=== PATIENT | female | born 1995 | race Caucasian/White ===

== ENCOUNTER 2017-03-30 23:11 | Emergency (ER) | payer BC ==
[~2017-03-30] VITALS: Ht 157.5 cm; Wt 113.4 kg
[~2017-03-30 23:11] MED LIST changes: -CETI10TA84 PO; -GLC/500 PO; -MULT-1027 PO
[2017-03-30 23:14] VITALS: TEMP 36.7; Ht 157.5 cm; Wt 113.4 kg
[2017-03-30] MEDS ORDERED: MULT-1027 PO (23:41)
[2017-03-30] MEDS ORDERED: GLC/500 PO (23:41)
[2017-03-30] MEDS ORDERED: CETI10TA84 PO (23:41)
[2017-03-31 00:27] VITALS: BP 117/71; PULSE 73; O2SAT 98
--- NOTE | 2017-03-31 05:09 | EMERGENCY ROOM VISIT NOTE ---
ED Visit Note First contact with patient: 23:26 CHIEF COMPLAINT: Hand injury HISTORY OF PRESENT ILLNESS: This 21 yo patient presented to the emergency department after they injured the right hand after cracking her hand the other day. The patient rates the pain as throbbing and 4/10. The patient denies any numbness or tingling. The patient does not have injuries to the wrist. The patient has not had a previous fracture to this hand. REVIEW OF SYSTEMS: A 6 system review of systems was completed with positives and pertinent negatives in the HPI. ALLERGIES: None MEDICATIONS: Reviewed PMH:Medical Problems: (1) Asthma Status: Chronic (2) Asthma, Unspecified Status: Chronic (3) Diab Sarah Wo Compl, Type Ii Or Unspec Type, Not Uncntrld Status: Chronic (4) Dysuria Status: Resolved (5) GERD (gastroesophageal reflux disease) Status: Chronic (6) HTN (hypertension) Status: Chronic (7) Infected pierced navel Status: Resolved (8) Infected pierced navel Status: Resolved SOCIAL HISTORY: No drug use PHYSICAL EXAM: Vital Signs: Reviewed Nurse's notes, vital signs stable. GENERAL : Pleasant female, in no acute distress, but appears to be in pain, well- developed, well-nourished. MUSCULOSKELETAL: There is no deformity of the right hand. There is tenderness second metacarpal. There is no thenar or hypothenar eminence atrophy. Normal thumb opposition to all fingers. Associate Producer strength 5/5. There is no laceration. Capillary refill less than 2 seconds. No tenderness of the fingers or wrist. Full range of motion of the wrist. No snuff box tenderness. Radial pulse 2+. NEURO: Alert and oriented to person, place, and time. Normal sensation to light and sharp touch. EMERGENCY DEPARTMENT COURSE: I examined the patient. An x-ray of the right hand was reviewed by myself and my attending and shows no fracture. Patient is advised follow-up orthopedics in a few days if symptoms persist or here in the ER sooner for severe pain, numbness, tingling, worsening signs or symptoms or as needed The patient was discharged home in good condition. DIAGNOSIS: Right hand pain DISCHARGE INSTRUCTIONS: As below Problem List Medical Problems: (1) Asthma Status: Chronic (2) Asthma, Unspecified Status: Chronic (3) Diab Sarah Wo Compl, Type Ii Or Unspec Type, Not Uncntrld Status: Chronic (4) Dysuria Status: Resolved (5) GERD (gastroesophageal reflux disease) Status: Chronic (6) HTN (hypertension) Status: Chronic (7) Infected pierced navel Status: Resolved (8) Infected pierced navel Status: Resolved Current/Historical Medications Scheduled Cetirizine (Zyrtec), 10 MG PO DAILY Metformin Hcl (Glucophage), 500 MG PO TID Multiple Vitamin (Multi Vitamin), 1 TAB PO DAILY Allergies Coded Allergies: No Known Allergies (Unverified , NONE, 03/30/17) Vital Signs Date Time Temp Pulse Resp B/P (MAP) Pulse Ox O2 Delivery O2 Flow Rate FiO2 03/31/17 00:27 73 16 117/71 98 03/30/17 23:14 36.7 83 18 151/101 99 Room Air Departure Information Impression Primary Impression: Right hand pain Dispostion Home / Self-Care Condition GOOD Referrals Lavon Santiago, DO Forms HOME CARE DOCUMENTATION FORM, IMPORTANT VISIT INFORMATION Patient Instructions [facility] Additional Instructions Ibuprofen(Motrin, Advil) may be used for fever or pain. Use 600mg every six hours as needed. Take with food. Avoid using more than 2400mg in a 24 hour period. Do not use 2400mg per day for more than three consecutive days without physician direction. Prolonged inappropriate use can lead to stomach upset or ulcers. This medication can be taken if you need to drive, work, or perform activities which may be dangerous when taking narcotic pain medication. (AND/OR) Acetaminophen(Tylenol) may be used for fever or pain. Use 1000mg every six hours as needed. Avoid using more than 3000mg in a 24 hour period. This medication can be taken if you need to drive, work, or perform activities which may be dangerous when taking narcotic pain medication. Ice compresses for 20 minutes at a time four times daily for 2-3 days. Rest and elevate your injury. Continue current medications. Return to the ER immediately for any numbness, tingling, severe pain, extreme swelling in the extremity or as needed. Call Orthopedics tomorrow in 3-5 days if symptoms persist follow up for your injury.
--- NOTE | 2017-03-31 06:48 | DIAGNOSTIC IMAGING REPORT ---
RIGHT HAND MIN 3 VIEWS ROUTINE CLINICAL HISTORY: Right hand pain. COMPARISON: Right hand radiographs March 30, 2017. FINDINGS: Alignment of the right and is an anatomic. Carpal bones are intact. No acute fracture is identified. IMPRESSION: No acute fracture or dislocation of the right hand. Electronically signed by: Jose Benavides M.D. 03/31/2017 6:47 AM Dictated Date/Time: 03/31/2017 6:45 AM
== END 2017-03-31 00:27 | disposition home or self-care (01) ==
LOC: C.EDB 23:13 → C.EDC 03-31 00:27
DX: S69.91XA Unspecified injury of right wrist, hand and finger(s), initial encounter (principal); X58.XXXA Exposure to other specified factors, initial encounter; J45.909 Unspecified asthma, uncomplicated; E11.9 Type 2 diabetes mellitus without complications; K21.9 Gastro-esophageal reflux disease without esophagitis; I10 Essential (primary) hypertension; Z79.899 Other long term (current) drug therapy

== ENCOUNTER → 2017-03-30 | Outpatient (CLI) | payer BC ==
[~2017-03-30] MED LIST: CETI10TA84 PO; GLC/500 PO; MULT-1027 PO; PRENTAB26 PO; VALA500T39 PO
--- NOTE | 2017-03-30 14:47 | DIAGNOSTIC IMAGING REPORT ---
RIGHT HAND MIN 3 VIEWS ROUTINE CLINICAL HISTORY: 21 years-old Female presenting with JOINT PAIN IN FINGER OF RIGHT HAND Right. TECHNIQUE: Frontal, oblique, and lateral views of the right hand were obtained. COMPARISON: None. FINDINGS: No acute fracture or malalignment. Regional soft tissues normal. No radiopaque foreign body. IMPRESSION: No acute osseous injury of the right hand. Electronically signed by: Yon Winter M.D. 03/30/2017 2:46 PM Dictated Date/Time: 03/30/2017 2:45 PM
== END | disposition home or self-care (01) ==
LOC: C.RAD1850 14:30
PROVIDERS: ATTEND Physician Assistant
DX: M25.541 Pain in joints of right hand (principal)

== ENCOUNTER → 2017-12-06 | Outpatient (CLI) | payer BC ==
[~2017-12-06] MED LIST changes: +CETI10TA84 PO; +GLC/500 PO; +MULT-1027 PO; -PRENTAB26 PO; -VALA500T39 PO
[2017-12-06 17:30] LABS: ALT/SGPT 47 U/L (12-78); AST/SGOT 20 U/L (15-37); BLOOD UREA NITROGEN 9 mg/dl (7-18); CALCIUM 8.7 mg/dl (8.5-10.1); CARBON DIOXIDE 24 mmol/L (21-32); CREATININE 0.75 mg/dl (0.60-1.20); GLUCOSE 95 mg/dl (70-99); POTASSIUM 3.8 mmol/L (3.5-5.1); SODIUM 137 mmol/L (136-145)
[2017-12-06 17:40] LABS: ALKALINE PHOSPHATASE 70 U/L (45-117); TOTAL PROTEIN 7.4 gm/dl (6.4-8.2)
[2017-12-07 06:45] LABS: HEMOGLOBIN A1C 5.2 % (4.5-5.6)
== END | disposition home or self-care (01) ==
LOC: C.LABBFT 14:17
PROVIDERS: ATTEND Nurse Practitioner
DX: E88.81 Metabolic syndrome and other insulin resistance (principal); G43.909 Migraine, unspecified, not intractable, without status migrainosus

== ENCOUNTER → 2018-02-15 | Outpatient (CLI) | payer BC | END | disposition home or self-care (01) | LOC: C.PAPS 15:46 | PROVIDERS: ATTEND Obstetrics & Gynecology | DX: Z34.81 Encounter for supervision of other normal pregnancy, first trimester (principal) ==

== ENCOUNTER → 2018-02-15 | Outpatient (CLI) | payer BC | END | disposition home or self-care (01) | LOC: C.LABSPEC 15:50 | PROVIDERS: ATTEND Obstetrics & Gynecology | DX: Z34.81 Encounter for supervision of other normal pregnancy, first trimester (principal) ==

== ENCOUNTER 2020-07-04 05:41 | Observation (INO) ==
[2020-07-04] MEDS ORDERED: FAMOTIDINE 20MG/5ML IV PUSH IV ONE ×2 (08:31)
[2020-07-04] MEDS ORDERED: MoRPHine SULFATE 4 MG/ML 1 ML CARP\\VIAL ONE ×3 (09:05→16:14)
[2020-07-04] MEDS ORDERED: oxyCODONE/ACETAMINOPHEN 5mg/325mg TAB PO ONE ×2 (10:45)
[2020-07-04] MEDS ORDERED: MoRPHine SULFATE 4 MG/ML 1 ML CARP\\VIAL IV PRN (12:07)
[2020-07-04] MEDS ORDERED: ONDANSETRON INJ 2 MG/ML 2 ML VIAL IV PRN (12:07)
[2020-07-04] MEDS ORDERED: IOVERSOL 100ml IV ONE (17:50)
[2020-07-04 18:51] LABS: Alanine Aminotransferase 38 U/L (12-78); Albumin Globulin Ratio 0.9 (0.9-2); Albumin Level 3.7 gm/dl (3.4-5.0); Alkaline Phosphatase 82 U/L (45-117); Aspartate Aminotransferase 16 U/L (15-37); Bilirubin,Total 0.2 mg/dl (0.2-1); Blood Urea Nitrogen 13 mg/dl (7-18); Calcium 8.8 mg/dl (8.5-10.1); Carbon Dioxide 29 mmol/L (21-32); Chloride 107 mmol/L (98-107); Est GFR (African American) 132.7; Est GFR (Non-African American) 114.5; Globulin 3.9 gm/dl (2.5-4.0); Glucose 94 mg/dl (70-99); Lipase 927 U/L (73-393); Potassium 4.2 mmol/L (3.5-5.1); Sodium 139 mmol/L (136-145); Total Protein 7.6 gm/dl (6.4-8.2)
[2020-07-04 18:52] LABS: Chol HDL Ratio 4; Cholesterol 181 mg/dl (0-200); HDL Cholesterol 48 mg/dl; LDL Cholesterol Calculated 96 mg/dl; Triglycerides 186 mg/dl (0-150); VLDL Cholesterol 37 mg/dl
[2020-07-04 19:03] LABS: Appearance Urine Clear (Clear); Bilirubin Urine Negative (Negative); Blood Urine Negative (Negative); Color Urine Yellow; Glucose Urine UA Negative (Negative); Ketones Urine Negative (Negative); Leukocyte Esterase Urine Negative (Negative); Nitrite Urine Negative (Negative); Protein Urine Negative (Negative); Specific Gravity Urine 1.016 (1.000-1.030); Urobilinogen Urine Negative (Negative)
[2020-07-04] MEDS ORDERED: GLUCAGON FOR INJ 1 MG VIAL SQ PRN (19:30)
[2020-07-04] MEDS ORDERED: GLUCOSE 10 TABS/TUBE PO PRN (19:30)
[2020-07-04] MEDS ORDERED: CARBOHYDRATES FOR HYPOGLYCEMIA PO PRN (19:30)
[2020-07-04] MEDS ORDERED: DEXTROSE 50% 50 ML SYRINGE IV PRN (19:30)
[2020-07-04] MEDS ORDERED: GLUCOSE 40% GEL 15 GM TUBE PO PRN (19:30)
[2020-07-04 19:48] LABS: Hematocrit (blood only) 41.3 % (37-47); Hemoglobin 13.7 g/dL (12.0-16.0); Immature Granulocytes # (auto) 0.03 K/uL (0.00-0.02); Immature Granulocytes % (auto) 0.4 %; Lymphocytes # (auto) 2.96 K/uL (1.2-3.4); Lymphocytes % (auto) 37.3 %; Mean Corpuscular Hgb Conc 33.2 g/dL (32-36); Mean Corpuscular Volume 87.5 fL (80-100); Mean Platelet Volume 9.4 fL (7.4-10.4); Monocytes # (auto) 0.56 K/uL (0.11-0.59); Monocytes % (auto) 7.1 %; Neutrophils # (auto) 4.38 K/uL (1.4-6.5); Neutrophils % (auto) 55.2 %; Platelet Count 407 K/uL (130-400); RDW Coefficient of Variation 12.7 % (11.5-14.5); RDW Standard Deviation 41.1 fL (36.4-46.3); Red Blood Count 4.72 M/uL (4.2-5.4); White Blood Count 7.93 K/uL (4.8-10.8)
[2020-07-04 20:06] LABS: Pregnancy Test, Serum Negative (Negative)
[2020-07-04] MEDS: SODIUM CHLORIDE 0.9% 1000ML 1,000 ML IV SCH ×2 (20:20→20:38)
--- NOTE | 2020-07-04 20:27 | Ultrasound Report ---
BILIARY ULTRASOUND CLINICAL HISTORY: Right upper quadrant abdominal pain COMPARISON STUDY: No previous studies for comparison. FINDINGS: The pancreas appears normal as visualized however portions of the body and tail were nondelineated. No focal hepatic masses are visualized. The gallbladder appears sonographically normal. There is suspected mild increase in hepatic echogenicity, nonspecific finding most often seen in hepatic steatosis. The common bile duct measures 6 mm. IMPRESSION: 1. Increased hepatic echogenicity, nonspecific finding most often seen in hepatic steatosis. 2. Otherwise normal biliary ultrasound. ACT 112: Negative or not required by law. Electronically signed by: Rick Hernandez M.D. 07/04/2020 8:33 AM [facility]IM[facility]
--- NOTE | 2020-07-04 21:26 | CT Scan Report ---
CT abd pelvis IV con only CLINICAL HISTORY: Lower abdominal pain COMPARISON STUDY: None. TECHNIQUE: The patient was scanned in a dynamic helical fashion during intravenous administration of 94 cc of Optiray 320 A dose lowering technique was utilized adhering to the principles of ALARA. CT DOSE: FINDINGS: Lower chest: There is a 3 mm solid left lower lobe pulmonary nodule. An average risk patient, no furt her follow-up is indicated Liver: There is hepatic steatosis. No focal hepatic masses are visualized. Gallbladder: Unremarkable. Spleen: Normal in size and attenuation. Pancreas: Unremarkable. Adrenal glands: Unremarkable. Kidneys: There is symmetric renal cortical enhancement. The kidneys are normal in size without hydron ephrosis. Bowel: There are no transition zones to indicate bowel obstruction. The appendix appears normal. Ther e is no acute diverticulitis. Peritoneum: There is no intraperitoneal free air or abdominal ascites. Vasculature: The abdominal aorta is normal in course and caliber. Adenopathy: None. Pelvic viscera: The bladder, and pelvic viscera are unremarkable. Skeletal structures: No destructive osseous lesions are seen. IMPRESSION: 1. No acute intra-abdominal or pelvic findings 2. Hepatic steatosis 3. No evidence of bowel obstruction. No evidence of free air 4. Normal appendix 5. No evidence of acute diverticulitis ACT 112: Negative or not required by law. Electronically signed by: Rick Hernandez M.D. 07/04/2020 9:43 AM
[2020-07-04] MEDS: INSULIN ASPART 100 UNITS/ML 3 ML PEN SC SCH (22:03)
[2020-07-04] MEDS: oxyCODONE/ACETAMINOPHEN 5mg/325mg TAB PO PRN (23:12)
[2020-07-05] MEDS: INSULIN ASPART 100 UNITS/ML 3 ML PEN SC SCH ×3 (00:04→13:26)
[2020-07-05] MEDS ORDERED: LORazepam 0.5 MG/1 ML VIAL IV ONE (01:00)
[2020-07-05] MEDS: oxyCODONE/ACETAMINOPHEN 5mg/325mg TAB PO PRN ×3 (05:53→19:17)
[2020-07-05 06:14] LABS: Hematocrit (blood only) 41.5 % (37-47); Hemoglobin 13.6 g/dL (12.0-16.0); Mean Corpuscular Hemoglobin 29.1 pg (25-34); Mean Corpuscular Hgb Conc 32.8 g/dL (32-36); Mean Corpuscular Volume 88.7 fL (80-100); Mean Platelet Volume 9.5 fL (7.4-10.4); Platelet Count 416 K/uL (130-400); RDW Coefficient of Variation 12.9 % (11.5-14.5); RDW Standard Deviation 41.6 fL (36.4-46.3); Red Blood Count 4.68 M/uL (4.2-5.4); White Blood Count 7.12 K/uL (4.8-10.8)
[2020-07-05] MEDS: SODIUM CHLORIDE 0.9% 1000ML 1,000 ML IV SCH ×2 (06:41)
[2020-07-05 06:45] LABS: BUN Creatinine Ratio 14.3 (10-20); Blood Urea Nitrogen 10 mg/dl (7-18); Calcium 8.1 mg/dl (8.5-10.1); Carbon Dioxide 29 mmol/L (21-32); Chloride 106 mmol/L (98-107); Est GFR (African American) 139.6; Est GFR (Non-African American) 120.4; Glucose 83 mg/dl (70-99); Lipase 315 U/L (73-393); Potassium 3.9 mmol/L (3.5-5.1); Sodium 140 mmol/L (136-145)
[2020-07-05 06:55] LABS: Estimated Average Glucose 105 mg/dl; Hemoglobin A1C 5.3 % (4.5-5.6)
--- NOTE | 2020-07-05 08:01 | Hospitalist Progress Note ---
Date of Service July 05, 2020 Assessment & Plan (1) Acute pancreatitis: Cheyenne Leo is a 25 yo female with h/o morbid obesity, PCOS and depression/anxiety who was admitted on 07/04/2020 for acute pancreatitis. Acute Pancreatitis - acute-onset epigastric pain radiating to back, first episode - LFTs WNL, CT abd/pelv with evidence of hepatic steatosis but no evidence of gallbladder/pancreatic pathology - no recent dietary changes, no alcohol use, triglycerides 158 - suspect pancreatitis 2/2 to Effexor vs idiopathic - d/c'd Effexor on admission - will transition to new medication as will be described below - started on full bowel rest --> advanced to full liquids today, continue to AAT - Zofran PRN - continue IVFs LR 150cc/hr - received Morphine in the ED but current pain controlled on PRN Percocet - continue - Morphine PRN ordered for breakthrough pain - continue to monitor for improvement in abdominal pain - trend CBC daily Depression/Anxiety - onset ~2 years ago, transitioned from Lexapro to Effexor ~1 year ago for utility in neuropathic pain associated with Carpal Tunnel Syndrome - Effexor d/c'd in setting of acute pancreatitis as mentioned above - patient amenable to trial of Bupriopion 75mg PO BID, given similar mechanism of action as well as utility in weight loss - recommend f/u with PCP for future titration as necessary Morbid Obesity - follow with Bariatric surgeon, hoping to have surgery in ~6 months - start Bupropion as above PCOS - A1c 5.3 on 07/04/2020 - held home Metformin while hospitalized, SSI ordered as needed for hyperglycemia FEN/GI: clear liquids (advance as tolerated), LR 150cc/hr DVT Prophylaxis: TEDs Code Status: Full code Disposition: Med/surg (2) Depression: (3) Morbid obesity: (4) Polycystic ovarian syndrome: Admission and Anticipated Discharge Date Admission Date: July 04, 2020 Supervising Physician Co-Signing Physician Notes Attending attestation Pt seen and examined in concert with Dr. Horton. In agreement with the documented findings as noted in the resident documentation with any exceptions or additions as noted here. 25 y/o female h/o depression/anxiety on Effexor 225mg p/w acute pancreatitis Gradually improving epigastric abdominal pain with minimal return of POI. c/o mild PARADA which has improved today with hydration and rest. On examination, S1/S2 nl RRR no MCG. CTAB. Abd nondistended, epigastric TTP, BS +ve Pancreatitis, acute - reviewed events prior to onset without apparent causality outside of effexor, addressed below - continue hydration. Advance diet to clears. Ondansetron PRN Depression/anxiety - will formally d/c effexor and start buproprion to replace. Discussed that it may also be helpful for weightloss. Else see resident documentation as noted. Subjective No acute events overnight. Today the patient reports that she started to have severe epigastric abdominal pain yesterday at 0400 - pain woke her up. Reports that pain is significantly improved today since receiving Morphine in the ED and Percocet x2 overnight. She also reports a moderate generalized headache that resolved with Ibuprofen x1 this morning. Patient denies alcohol use, previous RUQ pain or gallbladder issues, or recent changes in diet/medications. Reports that she has been treated for anxiety/depression since giving to youngest child in 08/2018 - she was changed from Lexapro to Effexor ~1 year ago due to additional benefit for carpal tunnel pain. Has tried coming down from current home dose of 225 mg before, but with worsened mood and headaches. Review of Systems Constitutional: no fever, no chills and no body aches Respiratory: no cough and no dyspnea Cardiovascular: no chest pain, no palpitations and no edema Gastrointestinal: + abdominal pain (epigastric); no nausea and no vomiting Musculoskeletal: + back pain Physical Exam Constitutional: WD/WN, vitals as above + obese Respiratory: normal respiratory effort, lungs clear to auscultation Cardiovascular: RRR, no murmur, no edema Gastrointestinal (Abdomen): Inspection/Auscultation: abdomen normal to inspection and normal bowel sounds; abdomen not distended Percussion/Palpation: + abdomen tender (moderate epigastric TTP); abdomen not rigid and abdomen not firm Skin: no rashes, warm and dry no periumbilical/back bruising Psychiatric: A+Ox3, euthymic affect Results & Data Results & Data ([facility]) Vital Signs (Past 12 Hours) Vital Signs Temp Pulse Resp BP Pulse Ox 07/04/20 23:03 36.7 C 74 16 154/91 H 95 Resident Activity Tracking Resident Involvement: Resident Care Provided Care Provided: Adult [facility] Medicine
[2020-07-05] MEDS ORDERED: IBUPROFEN 200 MG TAB PO PRN (08:38)
[2020-07-05 08:57] LABS: Albumin Level 3.3 gm/dl (3.4-5.0); Bilirubin Direct 0.1 mg/dl (0-0.2); Bilirubin,Total 0.6 mg/dl (0.2-1); Total Protein 6.9 gm/dl (6.4-8.2)
[2020-07-05] MEDS: CHOLECALCIFEROL 1,000 UNITS 25 MCG TAB PO SCH (09:10)
[2020-07-05] MEDS: MULTIVITAMIN TAB PO SCH (09:11)
[2020-07-05] MEDS ORDERED: Nursing to Pharmacy Communication SCH (12:45)
[2020-07-05] MEDS: LACTATED RINGER'S 1,000 ML IV SCH ×2 (16:26→23:33)
[2020-07-05] MEDS: buPROPion HCl 75 MG TABLET PO SCH (20:28)
[2020-07-06] MEDS: LACTATED RINGER'S 1,000 ML IV SCH ×3 (00:34→21:41)
[2020-07-06 07:32] LABS: Hematocrit (blood only) 39.3 % (37-47); Hemoglobin 12.9 g/dL (12.0-16.0); Immature Granulocytes # (auto) 0.02 K/uL (0.00-0.02); Immature Granulocytes % (auto) 0.3 %; Lymphocytes # (auto) 2.31 K/uL (1.2-3.4); Lymphocytes % (auto) 32.2 %; Mean Corpuscular Hemoglobin 28.5 pg (25-34); Mean Corpuscular Hgb Conc 32.8 g/dL (32-36); Mean Corpuscular Volume 86.9 fL (80-100); Mean Platelet Volume 9.4 fL (7.4-10.4); Monocytes # (auto) 0.54 K/uL (0.11-0.59); Monocytes % (auto) 7.5 %; Platelet Count 418 K/uL (130-400); RDW Coefficient of Variation 12.6 % (11.5-14.5); RDW Standard Deviation 40.7 fL (36.4-46.3); Red Blood Count 4.52 M/uL (4.2-5.4); White Blood Count 7.17 K/uL (4.8-10.8)
[2020-07-06 08:02] LABS: BUN Creatinine Ratio 12.1 (10-20); Blood Urea Nitrogen 8 mg/dl (7-18); Calcium 8.8 mg/dl (8.5-10.1); Carbon Dioxide 27 mmol/L (21-32); Chloride 106 mmol/L (98-107); Est GFR (African American) 143.7; Glucose 86 mg/dl (70-99); Potassium 3.8 mmol/L (3.5-5.1); Sodium 140 mmol/L (136-145)
[2020-07-06] MEDS: buPROPion HCl 75 MG TABLET PO SCH ×2 (08:26→21:41)
[2020-07-06] MEDS: CHOLECALCIFEROL 1,000 UNITS 25 MCG TAB PO SCH (08:26)
[2020-07-06] MEDS: MULTIVITAMIN TAB PO SCH (08:26)
[2020-07-06] MEDS: oxyCODONE/ACETAMINOPHEN 5mg/325mg TAB PO PRN ×2 (09:28→23:56)
[2020-07-06] MEDS ORDERED: MECLIZINE HCL 25 MG TAB PO STA (10:52)
[2020-07-06] MEDS: POLYETHYLENE (MIRALAX) 17 GM PACK PO SCH ×2 (11:34→22:20)
--- NOTE | 2020-07-06 12:31 | Hospitalist Progress Note ---
Date of Service July 06, 2020 Assessment & Plan (1) Acute pancreatitis: Cheyenne Leo is a 25 yo female with h/o morbid obesity, PCOS and depression/anxiety who was admitted on 07/04/2020 for acute pancreatitis. Acute Pancreatitis - acute-onset epigastric pain radiating to back, first episode - LFTs WNL, CT abd/pelv with evidence of hepatic steatosis but no evidence of gallbladder/pancreatic pathology - no recent dietary changes, no alcohol use, triglycerides 158 - suspect pancreatitis 2/2 to Effexor vs idiopathic - d/c'd Effexor on admission - will transition to new medication as will be described below - started on full bowel rest --> advanced to full liquids today 07/06 (starting with lunch), continue to ADAT - Zofran PRN - continue IVFs LR 150cc/hr - received Morphine in the ED but current pain controlled on PRN Percocet - continue - Morphine PRN ordered for breakthrough pain - continue to monitor for improvement in abdominal pain - trend CBC daily - will add bowel regimen with Miralax 17gm BID scheduled - discussed dispo planning with patient and need for adequate pain control and ability to advance diet; will plan for d/c tomorrow if she is able to meet these criteria Viral Labyrinthitis/Vertigo - Pt with complaints of vertigo and "feeling like on a boat" exacerbated with head movement - Meclizine 25mg po ordered for symptomatic relief - Will continue to monitor Depression/Anxiety - onset ~2 years ago, transitioned from Lexapro to Effexor ~1 year ago for utility in neuropathic pain associated with Carpal Tunnel Syndrome - Effexor d/c'd in setting of acute pancreatitis as mentioned above - patient amenable to trial of Bupriopion 75mg PO BID, given similar mechanism of action as well as utility in weight loss - recommend f/u with PCP for future titration as necessary Morbid Obesity - follow with Bariatric surgeon, hoping to have surgery in ~6 months - start Bupropion as above PCOS - A1c 5.3 on 07/04/2020 - held home Metformin while hospitalized, SSI ordered as needed for hyperglycemia FEN/GI: advancing to full liquids (continue to advance as tolerated), LR 150cc/hr DVT Prophylaxis: TEDs Code Status: Full code Disposition: Med/surg (2) Depression: (3) Morbid obesity: (4) Polycystic ovarian syndrome: Admission and Anticipated Discharge Date Admission Date: July 04, 2020 Supervising Physician Co-Signing Physician Notes I personally examined the patient and verified all diaz points of history and exam, discussed case, and agree with decision making with Dr Smith. belly pain feeling better but still reasonably bad. worse after eating. vitals noted nad heent nc at mmm abd soft (+) epigastric ttp no guarding no rebound no ridigity acute pancreatitis -most likely effexor related -improving -continue fluids, pain control, add bowel regimen, continue supportive care otherwise as above Subjective Patient was seen and evaluated at bedside today. She states that she continues to have epigastric abdominal pain that radiates through to the back. The pain has improved during hospitalization and she currently rates the pain at a 2/10. However, patient does note that the pain significantly increases about 45 min to 1 hour after eating (she remains on a clear liquid diet at the current time). Patient reports associated decreased appetite but she denies nausea or vomiting. She also complains of "vertigo" this morning. Patient states that she had a gradual onset of the vertigo/dizziness last night that is persistent at the current time. The vertigo is described as a room spinning/being on a boat sensation. Patient denies lightheadedness. She admits to a hx of vertigo with similar presentation to the current symptoms; she has not taken medication for this symptom in the past and typically just allows time to mitigate the symptoms. Patient otherwise denies fever, chills, CP, SOB, cough, leg pain, or leg swelling. Review of Systems Constitutional: no fever and no chills Respiratory: no cough and no dyspnea Cardiovascular: no chest pain Gastrointestinal: + abdominal pain (epigastric); no nausea, no vomiting and no diarrhea/loose stools Musculoskeletal: + back pain; no joint pain and no swelling Neurologic: + dizziness; no headache(s) Physical Exam Physical Exam: GENERAL: No acute distress. Well developed and well nourished. Vital signs reviewed. EYES: EOMI. Leftward horizontal nystagmus noted with evaluation of EOM. Anicteric sclerae. HENT: Moist mucous membranes. RESPIRATORY: Clear to auscultation bilaterally. No wheezing, rales, or rhonchi. CARDIOVASCULAR: Regular rate and rhythm. No murmurs. ABDOMEN: Soft, minimal tenderness to palpation in RUQ and epigastric region. No guarding. No rebound. Non-distended. Normal bowel sounds. EXTREMITIES: No edema. Non-tender. PSYCHIATRIC: Cooperative. Appropriate mood and affect. Results & Data Results & [facility] ([facility]) Vital Signs (Past 12 Hours) Vital Signs Temp Pulse Resp BP Pulse Ox 07/06/20 08:27 36.8 C 68 16 104/71 98 Resident Activity Tracking Resident Involvement: Resident Care Provided Care Provided: Adult Hospital Medicine
--- NOTE | 2020-07-06 17:50 | Billing Data ---
Date of Service July 06, 2020 Coding Level of Care Code 38695 Subseq Hosp Care Lvl 3
[2020-07-06] MEDS ORDERED: MECLIZINE HCL 25 MG TAB PO PRN (18:17)
[2020-07-07] MEDS: LACTATED RINGER'S 1,000 ML IV SCH ×2 (02:11→03:18)
[2020-07-07] MEDS: MULTIVITAMIN TAB PO SCH (08:47)
[2020-07-07] MEDS: CHOLECALCIFEROL 1,000 UNITS 25 MCG TAB PO SCH (08:47)
[2020-07-07] MEDS: buPROPion HCl 75 MG TABLET PO SCH (08:48)
[2020-07-07] MEDS ORDERED: SENNA 8.6 MG TAB PO SCH (09:00)
--- NOTE | 2020-07-07 14:12 | Discharge Summary ---
Date of Service July 07, 2020 Admission HPI Per Admitting Provider see scanned document for H&P from [facility] downtime 07/05/20 Admission Exam Per Admitting Provider see scanned document for H&P from [facility] downtime 07/05/20 Principal Diagnosis pancreatitis Discharge Exam GENERAL: No acute distress. Well developed and well nourished. Vital signs reviewed. EYES: EOMI. Anicteric sclerae. HENT: Moist mucous membranes. No pharyngeal erythema or exudates. No cervical lymphadenopathy. RESPIRATORY: Clear to auscultation bilaterally. No wheezing, rales, or rhonchi. CARDIOVASCULAR: Regular rate and rhythm. No murmurs. ABDOMEN: Soft, minimal tenderness to palpation most prominent in RUQ and epigastrum. Normal bowel sounds. EXTREMITIES: No edema. Non-tender. NEUROLOGIC: A/O x3. No focal neurological deficits. PSYCHIATRIC: Cooperative. Appropriate mood and affect. Discharge Data Allergies Allergy/AdvReac Type Severity Reaction Status Date / Time No Known Allergies Allergy NONE Verified 04/14/20 13:06 Ordered Studies 07/04/20 CT abd pelvis IV con only Routine US gallbladder Routine Hospital Course (1) Acute pancreatitis: Cheyenne Leo is a 25 yo female with h/o morbid obesity, PCOS and depression/anxiety who was admitted on 07/04/2020 for acute pancreatitis. Acute Pancreatitis - acute-onset epigastric pain radiating to back, first episode - LFTs WNL, CT abd/pelv with evidence of hepatic steatosis but no evidence of gallbladder/pancreatic pathology - no recent dietary changes, no alcohol use, triglycerides 158 - suspect pancreatitis 2/2 to Effexor vs idiopathic - d/c'd Effexor on admission - will transition to new medication as will be described below - started on full bowel rest --> advanced to full liquids today 07/06 (starting with lunch), continue to ADAT - Zofran PRN - continued IVFs LR 150cc/hr; discontinued 07/07 - received Morphine in the ED but current pain controlled on PRN Percocet - continue - Morphine PRN ordered for breakthrough pain - continue to monitor for improvement in abdominal pain - trend CBC daily - will add bowel regimen with Miralax 17gm BID scheduled - discussed dispo planning with patient and need for adequate pain control and ability to advance diet --> she was tolerating full liquid diet well and pain is appropriately controlled - Patient requesting d/c home. She is stable and safe for discharge at this time. Viral Labyrinthitis/Vertigo - Pt with complaints of vertigo and "feeling like on a boat" exacerbated with head movement - Meclizine 25mg po ordered for symptomatic relief w/ improvement - Will continue to monitor Depression/Anxiety - onset ~2 years ago, transitioned from Lexapro to Effexor ~1 year ago for utility in neuropathic pain associated with Carpal Tunnel Syndrome - Effexor d/c'd in setting of acute pancreatitis as mentioned above - patient amenable to trial of Bupriopion 75mg PO BID, given similar mechanism of action as well as utility in weight loss - recommend f/u with PCP for future titration as necessary Morbid Obesity - follow with Bariatric surgeon, hoping to have surgery in ~6 months - start Bupropion as above PCOS - A1c 5.3 on 07/04/2020 - held home Metformin while hospitalized, SSI ordered as needed for hyperglycemia - Restart home metformin on discharge FEN/GI: advancing to full liquids (continue to advance as tolerated), LR 150cc/hr DVT Prophylaxis: TEDs Code Status: Full code Disposition: Med/surg (2) Depression: (3) Morbid obesity: (4) Polycystic ovarian syndrome: Total Time Total Time Spent Total Time Spent (In Minutes): <30 Discharge Plan Discharge Items Patient Disposition: Home - Self-Care Reason For Visit: ACUTE PANCREATITIS Discharge Diagnosis: pancreatitis Condition on Discharge: Good Activity: Resume your previous activity Non-emergency contact: Primary Care Provider Call non-emergency contact if: you have any medication questions, your symptoms worsen, your pain is not controlled, your pain is worsening and you have a fever Follow-up/Referrals: Josie Benavides MD [Primary Care Provider] - 07/10/20 1:30 pm (YOUR APPOINTMENT WILL BE WITH MARLEY VARELA PA-C) Diet: Bariatric and Other - See Diet Comment Diet Comment: advance diet as tolerated as discussed at time of discharge Addtl Attending Provider Instructions: Cheyenne, It was our pleasure to care for you at [facility] from 07/05/20 to 07/07/20. You presented to the hospital with a sudden onset of abdominal pain that radiated through to the back and were diagnosed with acute pancreatitis. You were evaluated for multiple known causes of pancreatitis. Your CT scan showed no problems with your gallbladder. Your triglycerides were not significantly elevated (they were 158). You have had no recent significant dietary changes. You report no alcohol use. It is suspected that your cause of pancreatitis was due to Effexor use. For this reason, your Effexor has been stopped and you have been started on a new medication - Bupropion 75mg by mouth twice a day. Please follow up with your primary care physician regarding this medication change. In order to treat the pancreatitis, we stopped your oral food intake to allow GI rest, provided you with IV fluids, and pain medication. You have done well and we were able to slowly start your dietary intake again. As we have discussed, it is recommended that you continue to increase your food intake/diet slowly. If your symptoms worsen as your start to eat more regular foods, you should back down on your diet again. Please also allow yourself to rest and continue to recover. Please follow up with your primary care doctor within 1 week. Return to the ED if your symptoms worsen, you are unable to control your pain, you develop a temperature > 100.4 F, or you develop nausea/vomiting and are unable to tolerate food intake. Pending Studies at Discharge: No Stand-Alone Forms: My [facility], Smoking Cessation Medications and DC Order Prescriptions: New bupropion HCl 75 mg Tablet 75 mg PO BID 30 Days Qty: 60 RF: 0 Continued clobetasol 0.05 % cream 1 applic topical BID 14 Days Qty: 60 RF: 2 metformin 500 mg tablet extended release 24hr 1,000 mg PO BID Qty: 120 RF: 2 cholecalciferol (vitamin D3) 50 mcg (2,000 unit) capsule 50 mcg PO DAILY Qty: 30 RF: 0 albuterol sulfate 90 mcg/actuation HFA aerosol inhaler 2 puff inhalation Q6H PRN (Reason: shortness of breath or wheezing) Qty: 8.5 RF: 2 Women's One Daily 18 mg iron-400 mcg-500 mg Ca Tablet 1 tab PO PM RF: 0 Discontinued venlafaxine 75 mg tablet extended release 24hr 75 mg PO DAILY Qty: 30 RF: 2 venlafaxine 150 mg tablet extended release 24hr 150 mg PO DAILY Qty: 90 RF: 0 Discharge Orders: Discharge Order (Routine); Ordered 07/07/20 Ordered By: Celina Eastman/Other Patient Handouts: ED Pancreatitis Admission Data Admit Date/Time: 07/04/20 12:07 Attending Provider: Ishan German Admit Provider: Robert Muller Primary Care Provider: Josie Benavides Other Providers: Dioni Anderson Other Interventions: Discharge Summary Assessment (RN) Last Done: 07/07/20 13:50 Supervising Physician Co-Signing Physician Notes I personally examined the patient and verified all diaz points of history and exam, discussed case, and agree with decision making with Dr Smith. belly pain improving - happens after eating but much more tolerable. feels that she would do ok at home. mom and aunt can help w the kids until she's feelling better vitals noted nad heent nc at mmm abd soft (+) epigastric ttp but less than yesterday no guarding no rebound no rigidity acute pancreatitis -most likely effexor related -improving -stable for home otherwise as above Resident Activity Tracking Resident Involvement: Resident Care Provided Care Provided: Adult Hospital Medicine
--- NOTE | 2020-07-07 18:28 | Billing Data ---
Date of Service July 07, 2020 Coding Level of Care Code D/C Day Management <30 mins
== END 2020-07-07 14:27 | disposition home or self-care (01) ==
LOC: ED 05:41 → 3W 05:41 → SUATTDRO 12:07 → 3W 17:57